=== PATIENT | male | born 1960 | race Caucasian/White ===

== ENCOUNTER 2018-09-24 18:56 | Emergency (ER) | payer MEDICAID, OTHER ==
[2018-09-24] MEDS ORDERED: NS 1,000 ML IV ONE (19:08)
[2018-09-24] MEDS ORDERED: HYDROmorphONE/DILAUDID 2 MG/ML INJ IVP ONE (19:08)
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
[2018-09-24 19:47] LABS: PLATELET COUNT 272 10^3/uL (150-400)
[2018-09-24] MEDS ORDERED: LET GEL TOPICAL 1 EA SYR TP ONE (20:20)
[2018-09-24 21:46] VITALS: BP 150/90
== END 2018-09-24 21:44 | disposition home or self-care (01) ==
PROC: 0CQ0XZZ Repair Upper Lip, External Approach (ICD-10-PCS; principal; 2018-09-24)
PROC: 09QKXZZ Repair Nasal Mucosa and Soft Tissue, External Approach (ICD-10-PCS; principal; 2018-09-24)
DX: S02.2XXA Fracture of nasal bones, initial encounter for closed fracture (principal); S01.21XA Laceration without foreign body of nose, initial encounter; S01.511A Laceration without foreign body of lip, initial encounter; S00.81XA Abrasion of other part of head, initial encounter; S70.11XA Contusion of right thigh, initial encounter; V19.3XXA Pedal cyclist (driver) (passenger) injured in unspecified nontraffic accident, initial encounter; Y93.55 Activity, bike riding
CPT/HCPCS: 96374; J1170

== ENCOUNTER 2018-10-06 22:36 | Emergency (ER) | payer MEDICAID, OTHER ==
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
[2018-10-07 00:45] VITALS: BP 156/88
== END 2018-10-07 00:43 | disposition home or self-care (01) ==
DX: S06.0X9A Concussion with loss of consciousness of unspecified duration, initial encounter (principal); W22.8XXA Striking against or struck by other objects, initial encounter; Y92.838 Other recreation area as the place of occurrence of the external cause